=== PATIENT | female | born 1975 | race Caucasian/White ===

== ENCOUNTER 2019-04-23 14:50 | Emergency (ER) | payer SELFPAY ==
[2019-04-23 14:54] VITALS: BP 125/79
[2019-04-23] MEDS ORDERED: CEPHALEXIN 500 MG CAPSULE PO ONE (15:04)
[2019-04-23] MEDS ORDERED: HYDROCODONE/ACETAMINOPHEN 7.5-325 MG TABLET PO ONE (15:04)
[2019-04-23] MEDS ORDERED: SULFAMETHOXAZOLE/TRIMETHOPRIM 800-160 MG TABLET PO ONE (15:04)
[2019-04-23] MEDS ORDERED: LIDOCAINE 1% INJ-PF (10 MG/ML) 30 ML SDV INJ ONE (15:04)
--- NOTE | 2019-04-23 15:55 | ER Document Report ---
ED Skin Rash/Insect Bite/Abscs - General Chief Complaint: Abscess Stated Complaint: ABSCESS/UPPER CHEST AREA Time Seen by Provider: 04/23/19 15:00 Notes: Patient is otherwise healthy 43-year-old female presents to the emergency department with a potential abscess to the right anterior chest. Patient voices she has noticed it for approximately a month. States recently she was "picking at it." Patient's denying any discharge but states it is "getting bigger and hurts now." Patient's denying any nausea, vomiting, fevers. She denies any history of abscesses or MRSA. She is denies any history of IV drug use. Patient voices no allergies to any medications. Patient states she is up-to-date on immunizations to include her tetanus. TRAVEL OUTSIDE OF THE [place] IN LAST 30 DAYS: No - Related Data Allergies/Adverse Reactions: No Known Allergies Allergy (Verified 04/23/19 14:59) Past Medical History - General Information source: Patient - Social History Smoking Status: Current Every Day Smoker Chew tobacco use (# tins/day): No Frequency of alcohol use: Occasional Drug Abuse: Marijuana Family History: Reviewed & Not Pertinent Patient has suicidal ideation: No Patient has homicidal ideation: No Review of Systems - Review of Systems Constitutional: denies: Fever EENT: No symptoms reported Cardiovascular: No symptoms reported Respiratory: No symptoms reported Gastrointestinal: No symptoms reported Genitourinary: No symptoms reported Female Genitourinary: No symptoms reported Musculoskeletal: No symptoms reported Skin: See HPI Hematologic/Lymphatic: No symptoms reported Neurological/Psychological: No symptoms reported Physical Exam - Vital signs Vitals: Temp Pulse BP Pulse Ox 97.9 F 107 H 125/79 96 04/23/19 14:53 04/23/19 14:53 04/23/19 14:53 04/23/19 14:53 - Notes Notes: GENERAL: Alert, interacts well. No acute distress. HEAD: Normocephalic, atraumatic. EYES: Pupils equal, round, and reactive to light. Extraocular movements intact. ENT: Oral mucosa moist, tongue midline. NECK: Full range of motion. Supple. Trachea midline. LUNGS: Clear to auscultation bilaterally, no wheezes, rales, or rhonchi. No respiratory distress. HEART: Regular rate and rhythm. No murmur ABDOMEN: Soft, non-tender. Non-distended. Bowel sounds present in all 4 quadrants. EXTREMITIES: Moves all 4 extremities spontaneously. No edema, normal radial and dorsalis pedis pulses bilaterally. No cyanosis. BACK: no cervical, thoracic, lumbar midline tenderness. No saddle anesthesia, normal distal neurovascular exam. NEUROLOGICAL: Alert and oriented x3. Normal speech. cranial nerves II through XII grossly intact PSYCH: Normal affect, normal mood. SKIN: Warm, dry, normal turgor. Dime size area of fluctuance noted to the right anterior upper chest. Approximately half dollar size erythema noted surrounding it. Movable. Course - Re-evaluation Re-evalutation: 04/23/19 15:53 I&D performed, patient tolerated well, see procedure note. Placed on antibiotics for surrounding cellulitis. - Vital Signs Vital signs: Temp Pulse Resp BP Pulse Ox 97.9 F 107 H 125/79 96 04/23/19 14:53 04/23/19 14:53 04/23/19 14:53 04/23/19 14:53 Procedures - Incision and Drainage Right chest Type: Simple Anesthetic type: 1% Lidocaine mL's of anesthetic: 3 Blade size: 11 I&D procedure: Betadine prep applied, Sterile dressing applied Incision Method: Incision made by scalpel Amount/type of drainage: Copious, purulent Discharge - Discharge Clinical Impression: Abscess Cellulitis Qualifiers: Site of cellulitis: trunk Site of cellulitis of trunk: chest wall Qualified Code(s): L03.313 - Cellulitis of chest wall Condition: Stable Disposition: HOME, SELF-CARE Instructions: Abscess ([facility]), Cellulitis ([facility]), Cephalexin ([facility]), Post Incision and Drainage, Trimethoprim-Sulfa ([facility]) Additional Instructions: As we discussed you have been seen and treated in the emergency department for an abscess. If possible you should soak this area approximately 3 times a day with Epson salt and a warm bath. You should also make sure you take antibiotics to their completion. Should he be taking antibiotics for 48-hour. MS swelling, redness does not improve you should return to the emergency room. You should also return to the emergency department should you develop a fever. Please follow-up with your primary care provider in the next 12 to 24 hours. Return to the emergency department for any other concerns. Prescriptions: Sulfamethoxazole/Trimethoprim [Bactrim Ds Tablet] 1 each PO BID 7 Days #14 tablet Fluconazole [Diflucan] 150 mg PO ONCE PRN #2 tablet PRN Reason: Cephalexin Monohydrate [Keflex 500 mg Capsule] 500 mg PO BID 7 Days #14 capsule
== END 2019-04-23 16:10 | disposition home or self-care (01) ==
LOC: ER 14:50
PROC: 0H95XZZ Drainage of Chest Skin, External Approach (ICD-10-PCS; principal; 2019-04-23)
DX: L02.213 Cutaneous abscess of chest wall (principal); L03.313 Cellulitis of chest wall; F17.200 Nicotine dependence, unspecified, uncomplicated
CPT/HCPCS: 99283; 10060; J3490